=== PATIENT | female | born 1975 | race African-American/Black ===

== ENCOUNTER 2021-07-20 22:20 | Emergency (ER) | payer MEDICAID ==
[~2021-07-20] VITALS: Ht 165.1 cm; Wt 136.0 kg
[2021-07-21] MEDS ORDERED: BENZ-16 MT (00:06)
[2021-07-21] MEDS ORDERED: IBUP-2030 MT (00:06)
[2021-07-21 00:30] VITALS: BP 129/76
== END 2021-07-21 00:47 | disposition home or self-care (01) ==
LOC: ER 22:20
DX: B34.9 Viral infection, unspecified (principal); Z20.822 Contact with and (suspected) exposure to COVID-19
CPT/HCPCS: 71045; 87426; 93005; 99285